=== PATIENT | female | born 1960 | race Caucasian/White ===

== ENCOUNTER 2020-10-13 20:09 | Inpatient (IN) | payer OTHER ==
[~2020-10-13] VITALS: Ht 154.9 cm; Wt 73.5 kg
--- NOTE | 2020-10-13 20:21 | NUR ---
PT BIB SON WITH C/O COUGH +SOB +PAIN ON INHALATION X2 DAYS. PT COVID VACCINATED MODERNA SINCE 06/5020. A/OX4. PUT ON POX AND CONNECTED TO MONITOR
[2020-10-13] MEDS ORDERED: IPRATROPIUM NEB FS 0.5 MG/2.5 ML AMPUL.NEB NEB ONE (20:30)
[2020-10-13] MEDS ORDERED: ALBUTEROL FS 2.5 MG/3 ML VIAL.NEB CONTNEB ONE (20:30)
[2020-10-13] MEDS ORDERED: DEXAMETHASONE SOLN 5 MG/5 ML UDC PO ONE (20:30)
[2020-10-13] MEDS ORDERED: DEXAMETHASONE SOLN 5 MG/5 ML UDC ONE (20:43)
--- NOTE | 2020-10-13 20:50 | NUR ---
FOREIGN EXCHANGE CLERK AT BEDSIDE. BLOODWORK DONE
[2020-10-13 20:51] LABS: BASOPHILS # (AUTO) 0.1 K/uL (0.0-0.2); BASOPHILS % (AUTO) 0.4 % (0.0-2.0); EOSINOPHILS % (AUTO) 5.6 % (0.0-6.0); HEMATOCRIT 46 % (33-45); LYMPHOCYTES # (AUTO) 1.5 K/uL (0.8-4.8); MEAN CORPUSCULAR HGB CONC 33 g/dl (31.0-36.0); MEAN CORPUSCULAR VOLUME 86 fL (82-100); MONOCYTES # (AUTO) 1.1 K/uL (0.1-1.30); MONOCYTES % (AUTO) 7.3 % (2.0-12.0); NEUTROPHILS # (AUTO) 11.4 K/uL (1.8-8.9); NEUTROPHILS % (AUTO) 76.7 % (43.0-81.0); PLATELET COUNT (AUTO) 316 K/uL (150-450); RED BLOOD CELL COUNT(AUTO) 5.32 MIL/uL (4.0-5.2); WHITE BLOOD COUNT (AUTO) 14.8 K/uL (4.3-11.0)
[2020-10-13 20:59] LABS: CALCIUM, SERUM 9.4 mg/dL (8.5-10.1); CARBON DIOXIDE 29 mmol/L (21-32); CHLORIDE 105 mmol/L (98-107); CREATININE 0.6 mg/dL (0.6-1.3); GLUCOSE 113 mg/dL (74-106); POTASSIUM 3.6 mmol/L (3.5-5.1); SODIUM SERUM 144 mmol/L (136-145); UREA NITROGEN, BLOOD 14 mg/dL (7-18)
--- NOTE | 2020-10-13 21:00 | NUR ---
INITIATED IV RAC #20G S/L COVID RAPID, PCR, AND INFLUENZA SWAB COLLECTED AND SENT TO LAB
[2020-10-13] MEDS ORDERED: ALBUTEROL FS 2.5 MG/3 ML VIAL.NEB ONE (21:01)
[2020-10-13] MEDS ORDERED: IPRATROPIUM NEB FS 0.5 MG/2.5 ML AMPUL.NEB ONE (21:01)
--- NOTE | 2020-10-13 21:03 | NUR ---
RT AT BEDSIDE
[2020-10-13 21:12] LABS: ALANINE AMINOTRANSFERASE 32 U/L (12-78); ALBUMIN 4.2 g/dL (3.4-5.0); ALKALINE PHOSPHATASE 124 U/L (46-116); ASPARTATE AMINOTRANSFERASE 25 U/L (15-37); BILIRUBIN,TOTAL 0.5 mg/dL (0.2-1.0); TOTAL PROTEIN, SERUM 7.9 g/dL (6.4-8.2)
[2020-10-13 21:28] LABS: C-REACTIVE PROTEIN 3.4 mg/dL (0.0-0.9); CREATINE KINASE, TOTAL 204 U/L (26-192); FERRITIN 89 ng/mL (8-388)
[2020-10-13 21:30] LABS: ABG BASE EXCESS -0.5 mmol/L; ABG OXYGEN SATURATION 96.1 % (92.0-98.5); ABG PCO2 38.7 mmHg (35.0-45.0); ABG PH 7.409 (7.350-7.450); ABG PO2 85.1 mmHg (75.0-100.0); AaDO2 97.8 mmHg; COHb 0.5 % (0.5-1.5); MetHb 0.4 % (0.0-1.5); O2Hb 95.2 % (94.0-97.0); SITE, ABG Left Radial; VENT MODE, BG NC 3L
[2020-10-13] MEDS ORDERED: LEVOFLOXACIN 750 MG /D5W 150ML 150 ML IV ONE ×2 (21:30→21:33)
--- NOTE | 2020-10-13 21:40 | NUR ---
WEB CONTENT PRODUCER AT BEDSIDE
--- NOTE | 2020-10-13 21:46 | NUR ---
PAGED EPIC FOR DEPARTMENT HEAD PROVIDER FOR DR TO REGARDING PT. AWAITING A CALL BACK.
--- NOTE | 2020-10-13 21:50 | NUR ---
PT O2 3LPM VIA N/C TOLERATING WELL AT 97%. COUGHING NOTED
[2020-10-13] MEDS ORDERED: IV NS 0.9% 250 ML IV ONE (22:00)
[2020-10-13] MEDS ORDERED: IOHEXOL-350 100 ML VIAL IV ONE (22:00)
--- NOTE | 2020-10-13 22:00 | NUR ---
MRSA SWAB COLLECTED AND SENT TO LAB. PATIENT'S BELONGINGS LIST DONE.
[2020-10-13] MEDS ORDERED: ACETAMINOPHEN ES 500 MG TABLET ONE (22:09)
[2020-10-13] MEDS ORDERED: ACETAMINOPHEN ES 500 MG TABLET PO ONE (22:30)
--- NOTE | 2020-10-13 22:34 | NUR ---
PT FOR BED 109
--- NOTE | 2020-10-13 22:40 | NUR ---
ATTEMPTED TO CALL [facility] FOR REPORT; WAS TOLD [facility] RN WILL CALL BACK. AWAITING FOR CALL
--- NOTE | 2020-10-13 23:09 | NUR ---
CALLED [facility] FOR FOLLOW UP ON CT
--- NOTE | 2020-10-13 23:40 | NUR ---
GAVE REPORT TO AMAN COOPER RN
[2020-10-13 23:55] VITALS: BP 169/101
--- NOTE | 2020-10-13 23:55 | NUR ---
ANIMAL HUSBANDRY MANAGER NOTE RECEIVED PATIENT VIA GURNEY. AMBULATED WITH STEADY GAIT. PATIENT STATES SHE DOES EXPERIENCE SOB. ON OXYGEN 3L/MIN VIA NASAL CANNULA. RESPIRATIONS ARE EVEN AND UNLABORED AT REST. WHEEZING HEARD BILATERAL LUNGS. NO C/O PAIN AT THIS TIME. EXTERNAL TELE MONITOR READS SINUS TACH. IN NO APPARENT DISTRESS. IV ACCESS IN RAC#20 PATENT AND SALINE LOCKED. OIL EXPELLER OPERATOR OBTAINED VITALS AND COMPLETED BELONGING LIST. INITIAL PHYSICAL ASSESSMENT COMPLETED AT THIS TIME. SKIN ASSESSMENT COMPLETE, PATIENT DOES NOT HAVE OPEN WOUNDS BUT DOES HAVE PSORIASIS ON HER BACK. BED IS LOW AND LOCKED, HOB ELEVATED IN SEMI FOWLERS, SIDE RAILS UP X2, CALL LIGHT WITHIN REACH, EXPLAINED USE. WILL CONTINUE TO MONITOR THROUGHOUT SHIFT.
--- NOTE | 2020-10-13 23:56 | NUR ---
PT TRANSFERRED TO [facility] VIA ACLS PROTOCOL. ALL PT BELONGINGS WITH PT.
[2020-10-14] MEDS ORDERED: Z GUARD REMEDY 2 OZ OINT TP PRN
[2020-10-14] MEDS ORDERED: hydrALAZINE HCL 10 MG TABLET PO PRN
[2020-10-14] MEDS ORDERED: ALBUTEROL FS 2.5 MG/3 ML VIAL.NEB NEB PRN
[2020-10-14] MEDS ORDERED: MAG HYDROX/AL HYDROX/SIMETH 30 ML UDC PO PRN
[2020-10-14] MEDS ORDERED: MAGNESIUM HYDROXIDE 30 ML UDC PO PRN
[2020-10-14] MEDS ORDERED: IPRATROPIUM NEB FS 0.5 MG/2.5 ML AMPUL.NEB NEB PRN
[2020-10-14] MEDS ORDERED: ONDANSETRON HCL/PF 4 MG/2 ML VIAL IVP PRN
[2020-10-14] MEDS: ENOXAPARIN SODIUM 40 MG/0.4 ML DISP.SYRIN SQ SCH ×2 (01:04→21:53)
[2020-10-14 04:00] VITALS: BP 146/92
[2020-10-14] MEDS: ACETAMINOPHEN 325 MG TABLET PO PRN ×2 (04:35→19:38)
[2020-10-14 06:44] LABS: BASOPHILS % (AUTO) 0.2 % (0.0-2.0); EOSINOPHILS % (AUTO) 0.1 % (0.0-6.0); HEMATOCRIT 44 % (33-45); HEMOGLOBIN 14.8 g/dL (11.5-14.8); LYMPHOCYTES # (AUTO) 0.7 K/uL (0.8-4.8); LYMPHOCYTES % (AUTO) 5.3 % (20.0-44.0); MEAN CORPUSCULAR HGB CONC 33 g/dl (31.0-36.0); MEAN CORPUSCULAR VOLUME 88 fL (82-100); MONOCYTES # (AUTO) 0.1 K/uL (0.1-1.30); MONOCYTES % (AUTO) 0.5 % (2.0-12.0); NEUTROPHILS # (AUTO) 12.4 K/uL (1.8-8.9); NEUTROPHILS % (AUTO) 93.9 % (43.0-81.0); PLATELET COUNT (AUTO) 308 K/uL (150-450); RED BLOOD CELL COUNT(AUTO) 5.05 MIL/uL (4.0-5.2); WHITE BLOOD COUNT (AUTO) 13.2 K/uL (4.3-11.0)
[2020-10-14 07:06] LABS: THYROID STIMULATING HORMONE 0.628 uIU/mL (0.358-3.74)
--- NOTE | 2020-10-14 07:20 | NUR ---
RN NOTE PATIENT RESTING IN BED. ON OXYGEN 3L/MIN VIA NASAL CANNULA. RESPIRATIONS ARE EVEN AND UNLABORED. MANAGED HEADACHE WITH TYLENOL. EXTERNAL TELE MONITOR READS SINUS RHYTHM. NO DISTRESS. IV ACCESS IN RAC#20. BED IS LOW AND LOCKED, HOB ELEVATED IN SEMI FOWLERS, SIDE RAILS UP X2, CALL LIGHT WITHIN REACH, WILL ENDORSE TO ONCOMING SHIFT.
--- NOTE | 2020-10-14 07:42 | NUR ---
FRENCH CORD BINDER OPENING NOTE Pt is Awake, A/O X 4, no respiratory distress, no SOB, denies any pain. On 3 liters via NC, tele reading sinus rhythm, safety precautions implemented, bed locked in lowest position, call light within reach.
[2020-10-14 08:09] LABS: ALBUMIN 4.3 g/dL (3.4-5.0); BILIRUBIN,TOTAL 0.5 mg/dL (0.2-1.0); PHOSPHORUS 3.1 mg/dL (2.5-4.9); TOTAL PROTEIN, SERUM 8.2 g/dL (6.4-8.2)
[2020-10-14] MEDS: LISINOPRIL (5MG) 5 MG TABLET PO SCH (08:32)
[2020-10-14] MEDS: PANTOPRAZOLE 40 MG TABLET.DR PO SCH (08:32)
[2020-10-14] MEDS: DEXAMETHASONE SOD PHOSPHATE 10 MG/ML VIAL IV SCH (08:33)
[2020-10-14 08:45] LABS: CALCIUM, SERUM 9.9 mg/dL (8.5-10.1); CREATININE 0.7 mg/dL (0.6-1.3)
[2020-10-14] MEDS ORDERED: LANS30CA54 PO (09:12)
[2020-10-14] MEDS ORDERED: CETI-90 PO (09:12)
--- NOTE | 2020-10-14 19:12 | NUR ---
RN CLOSING NOTES Pt is A/O X 4, on 3 Liters via NC, reports SOB after exertion walking to bathroom. Continent of B/. RAC IV line patent and intact. Denies any pain or distress. Safety precautions implemented, bed locked in lowest position, call light within reach.
--- NOTE | 2020-10-14 19:42 | NUR ---
rn note received pt alert and oriented x4. on 3L o2 via nc. not in any distress. pt complains of sob when ambulating to restroom. reminded to use call light for assistance. also complains of pain on head and neck when coughing, tylenol given as ordered. all safety measures implemented per protocol. will continue to monitor.
[2020-10-14 20:00] VITALS: BP 151/82
[2020-10-14] MEDS ORDERED: LEVOFLOXACIN 750 MG /D5W 150ML 750 MG in PREMIX 1 EA IV SCH (21:00)
[2020-10-14] MEDS: ATORVASTATIN 10 MG TABLET PO SCH (21:52)
[2020-10-15] MEDS: ZOLPIDEM TARTRATE 5 MG TABLET PO PRN ×2 (02:42→23:49)
--- NOTE | 2020-10-15 02:45 | NUR ---
rn note pt on and off sleep. requested some medication for sleep. ambien given as ordered. will continue to monitor.
[2020-10-15 04:00] VITALS: BP 121/84
--- NOTE | 2020-10-15 06:46 | NUR ---
RN NOTES PT SLEEPING, AROUSES EASILY. NOT IN ANY DISTRESS. DENIES SOB AT THIS TIME. CONTINUE ON O2 AT 3L VIA NC. NO CHANGES IN LOC NOTED, PT ABLE TO MAKE NEEDS KNOWN, PT AMBULATES TO RESTROOM WITH STEADY GAIT. REMAIN AFEBRILE. ALL NEEDS WERE ATTENDED. WILL ENDORSE TO NEXT SHIFT NURSE FOR REBECCA.
[2020-10-15 07:00] LABS: BASOPHILS # (AUTO) 0.1 K/uL (0.0-0.2); BASOPHILS % (AUTO) 0.4 % (0.0-2.0); EOSINOPHILS % (AUTO) 0.1 % (0.0-6.0); HEMATOCRIT 40 % (33-45); HEMOGLOBIN 13.2 g/dL (11.5-14.8); LYMPHOCYTES # (AUTO) 1.4 K/uL (0.8-4.8); LYMPHOCYTES % (AUTO) 8.7 % (20.0-44.0); MEAN CORPUSCULAR HGB CONC 33 g/dl (31.0-36.0); MEAN CORPUSCULAR VOLUME 87 fL (82-100); MONOCYTES # (AUTO) 1.4 K/uL (0.1-1.30); MONOCYTES % (AUTO) 8.4 % (2.0-12.0); NEUTROPHILS # (AUTO) 13.5 K/uL (1.8-8.9); NEUTROPHILS % (AUTO) 82.4 % (43.0-81.0); PLATELET COUNT (AUTO) 298 K/uL (150-450); RED BLOOD CELL COUNT(AUTO) 4.57 MIL/uL (4.0-5.2); WHITE BLOOD COUNT (AUTO) 16.4 K/uL (4.3-11.0)
[2020-10-15 07:19] LABS: CALCIUM, SERUM 9.2 mg/dL (8.5-10.1); CREATININE 0.7 mg/dL (0.6-1.3); PHOSPHORUS 3.6 mg/dL (2.5-4.9); POTASSIUM 3.8 mmol/L (3.5-5.1)
--- NOTE | 2020-10-15 07:45 | NUR ---
MS/RN OPENING NOTES RECEIVED PATIENT ON BED AWAKE ALERT AND ORIENTED X 4. PATIENT IS ON 3L OXYGEN VIA NASAL CANNULA SATURATING WELL. PATIENT IN NO APPARENT RESPIRATORY DISTRESS NOTED. NO COMPLAINED OF PAIN AT THIS TIME. WILL CONTINUE TO MONITOR.
[2020-10-15] MEDS: PANTOPRAZOLE 40 MG TABLET.DR PO SCH (07:57)
[2020-10-15] MEDS: LISINOPRIL (5MG) 5 MG TABLET PO SCH (08:49)
[2020-10-15] MEDS: DEXAMETHASONE SOD PHOSPHATE 10 MG/ML VIAL IV SCH (08:51)
--- NOTE | 2020-10-15 10:46 | NUR ---
PER [facility] PCR NEGATIVE.
[2020-10-15 12:00] VITALS: BP 134/89
[2020-10-15] MEDS: GUAIFENESIN LA 600 MG TABLET.SA PO SCH ×2 (13:12→21:11)
[2020-10-15] MEDS: LEVOFLOXACIN (250MG) 250 MG TABLET PO SCH (13:12)
[2020-10-15] MEDS: IPRATROPIUM NEB FS 0.5 MG/2.5 ML AMPUL.NEB NEB SCH ×4 (13:44→23:39)
[2020-10-15] MEDS: ALBUTEROL HALF STRENGTH 1.25 MG/3 ML VIAL.NEB NEB SCH ×4 (13:44→23:38)
--- NOTE | 2020-10-15 19:09 | NUR ---
MS/RN OPENING NOTES RECEIVED PATIENT ON BED AWAKE ALERT AND ORIENTED X 4. PATIENT IS ON 3L OXYGEN VIA NASAL CANNULA SATURATING WELL. PATIENT IN NO APPARENT RESPIRATORY DISTRESS NOTED. NO COMPLAINED OF PAIN AT THIS TIME. IV ACCESS AT RIGHT AC #20G PATENT AND INTACT. SEEN AND EXAMINED BY MD WITH ORDERS MADE AND CARRIED OUT. ALL DUE MEDICATIONS WAS GIVEN. SAFETY PRECAUTIONS WAS IN PLACED. BED IN LOWEST POSITION AND LOCKED. SIDERAILS UP X2. CALL LIGHT WITHIN REACH. WILL ENDORSED TO POLICE GUARD FOR REBECCA. Addendum: 10/15/20 at 1910 by KATTY CARRENO RN ERROR
--- NOTE | 2020-10-15 19:10 | NUR ---
MS/RN CLOSING NOTES PATIENT ON BED AWAKE ALERT AND ORIENTED X 4. PATIENT IS ON 3L OXYGEN VIA NASAL CANNULA SATURATING WELL. PATIENT IN NO APPARENT RESPIRATORY DISTRESS NOTED. NO COMPLAINED OF PAIN AT THIS TIME. IV ACCESS AT RIGHT AC #20G PATENT AND INTACT. SEEN AND EXAMINED BY MD WITH ORDERS MADE AND CARRIED OUT. ALL DUE MEDICATIONS WAS GIVEN. SAFETY PRECAUTIONS WAS IN PLACED. BED IN LOWEST POSITION AND LOCKED. SIDERAILS UP X2. CALL LIGHT WITHIN REACH. WILL ENDORSED TO MANAGER HELPDESK FOR REBECCA.
--- NOTE | 2020-10-15 19:53 | NUR ---
RN NOTE PATIENT ALERT AND ORIENTED X4, ABLE TO MAKE NEEDS KNOWN. ON O2 3L NASAL CANNULA, NO SIGNS OF RESPIRATORY DISTRESS. RIGHT AC # 20 PATENT AND INTACT, FLUSHED ASEPTICALLY WITH NS. BED LOCKED AND IN LOWEST POSITION. CALL LIGHT WITHIN REACH. ALL NEEDS ANTICIPATED.
[2020-10-15 20:00] VITALS: BP 129/76
[2020-10-15] MEDS: ATORVASTATIN 10 MG TABLET PO SCH (21:11)
[2020-10-15] MEDS: ENOXAPARIN SODIUM 40 MG/0.4 ML DISP.SYRIN SQ SCH (21:12)
[2020-10-15] MEDS: ACETAMINOPHEN 325 MG TABLET PO PRN (23:48)
[2020-10-16 04:00] VITALS: BP 126/81
[2020-10-16] MEDS: ALBUTEROL HALF STRENGTH 1.25 MG/3 ML VIAL.NEB NEB SCH ×6 (04:30→23:34)
[2020-10-16] MEDS: IPRATROPIUM NEB FS 0.5 MG/2.5 ML AMPUL.NEB NEB SCH ×6 (04:30→23:34)
[2020-10-16 06:27] LABS: BASOPHILS % (AUTO) 0.2 % (0.0-2.0); EOSINOPHILS % (AUTO) 0.3 % (0.0-6.0); HEMATOCRIT 40 % (33-45); HEMOGLOBIN 13.2 g/dL (11.5-14.8); LYMPHOCYTES # (AUTO) 2.3 K/uL (0.8-4.8); LYMPHOCYTES % (AUTO) 18.4 % (20.0-44.0); MEAN CORPUSCULAR HGB CONC 33 g/dl (31.0-36.0); MEAN CORPUSCULAR VOLUME 87 fL (82-100); MONOCYTES # (AUTO) 0.9 K/uL (0.1-1.30); NEUTROPHILS # (AUTO) 9.2 K/uL (1.8-8.9); NEUTROPHILS % (AUTO) 74.1 % (43.0-81.0); PLATELET COUNT (AUTO) 299 K/uL (150-450); WHITE BLOOD COUNT (AUTO) 12.3 K/uL (4.3-11.0)
--- NOTE | 2020-10-16 07:15 | NUR ---
RN NOTE PATIENT ALERT AND ORIENTED X4. CONTINUES ON O2 3L VIA NASAL CANNULA, RESPIRATIONS EVEN AND UNLABORED. NO SIGNS OF ACUTE RESPIRATORY DISTRESS. ALL NEEDS ATTENDED PROMPTLY. BED LOCKED AND IN LOWEST POSITION. CALL LIGHT WITHIN REACH. ENDORSED TO AM SHIFT.
--- NOTE | 2020-10-16 07:30 | NUR ---
RN N0TES Recieved patient in bed, sleeping, HOB elevated. Breathing even and unlabored. Patient currently on oxygen 3L/min nasal Cannula. No shortness of breath noted. Patient alert and oriented x4. Able to make needs known. Oxygen saturation within normal limits. Will continue to monitor.
[2020-10-16 07:42] LABS: CALCIUM, SERUM 9.4 mg/dL (8.5-10.1); POTASSIUM 3.4 mmol/L (3.5-5.1)
[2020-10-16 07:43] LABS: CREATININE 0.7 mg/dL (0.6-1.3); MAGNESIUM 2.3 mg/dL (1.8-2.4)
[2020-10-16 08:00] VITALS: BP 133/81
[2020-10-16] MEDS: PANTOPRAZOLE 40 MG TABLET.DR PO SCH (08:38)
[2020-10-16] MEDS: GUAIFENESIN LA 600 MG TABLET.SA PO SCH ×2 (08:39→21:43)
[2020-10-16] MEDS: LISINOPRIL (5MG) 5 MG TABLET PO SCH (08:41)
[2020-10-16] MEDS ORDERED: DEXAMETHASONE 4 MG TABLET PO SCH (09:00)
[2020-10-16] MEDS ORDERED: POTASSIUM CHLORIDE 20 MEQ TAB.PRT.SR PO ONE (10:00)
[2020-10-16] MEDS: methylPREDNISolone SOD SUCC 125 MG/2ML VIAL IV SCH ×2 (11:07→16:39)
[2020-10-16] MEDS: LEVOFLOXACIN (250MG) 250 MG TABLET PO SCH (12:30)
--- NOTE | 2020-10-16 15:59 | NUR ---
RN NOTES Received a call from Seasonal Sales AssociateNellie, ext [phone]. and asking the status of the patients oxygen saturation during rest and during ambulation. Patient's oxygen saturation during rest was ranging between 95-94 percent on NC 2/min. During rest and without oxygen, oxygen saturation was ranging from 95-94%. Patient refused to ambulate and have the oxygen saturation measured again. 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 Patient with episodes of coughing when taking deep breathes. Informed Nellie case mgr.
[2020-10-16 16:00] VITALS: BP 141/86
[2020-10-16 17:06] VITALS: BP 133/81
--- NOTE | 2020-10-16 18:29 | NUR ---
RN NOTES NO SIGNIFICANT CHANGES DURING SHIFT. CURRENTLY ON 3L OXYGEN VIA NASAL CANNULA. SKIN IS WARM AND DRY TO TOUCH. AFEBRILE. PATIENT ABLE TO AMBULATE TO THE RESTROOM BY HERSELF. PATIENT COMPLAINTS OF SOB WITH AMBULATION TO THE BATHROOM. NO COMPLAINTS OF DISCOMFORT DURING SHIFT. WILL ENDORSE TO NEXT SHIFT FOR CONTINUATION OF CARE.
--- NOTE | 2020-10-16 19:30 | NUR ---
RN NOTES Received patient in bed AOx4, continues on oxygen 3L via NC. Breathing normal no SOB noted. respiration even non labored. RAC IV intact no s/s of infiltration noted. Skin warm and dry to touch. Denies any pain or discomfort. All safety measures in place, call light within reach. Will cont to monitor for norma.
[2020-10-16 20:00] VITALS: BP 127/73
[2020-10-16] MEDS: ATORVASTATIN 10 MG TABLET PO SCH (21:45)
[2020-10-16] MEDS: ENOXAPARIN SODIUM 40 MG/0.4 ML DISP.SYRIN SQ SCH (21:46)
[2020-10-17] MEDS: ACETAMINOPHEN 325 MG TABLET PO PRN (03:17)
[2020-10-17] MEDS: IPRATROPIUM NEB FS 0.5 MG/2.5 ML AMPUL.NEB NEB SCH ×3 (03:29→11:34)
[2020-10-17] MEDS: ALBUTEROL HALF STRENGTH 1.25 MG/3 ML VIAL.NEB NEB SCH ×3 (03:29→11:34)
[2020-10-17 04:00] VITALS: BP 140/83
--- NOTE | 2020-10-17 06:48 | NUR ---
RN NOTES No changes noted during shift. vital signs remained wnl. Breathing normal continues with 5L NC. Skin warm and dry to touch. Patient is able to ambulate to the bathroom but noted with SOB and low saturation to 82%.Encourage pt to call for assistance when need to go to the bathroom, pt verbalized understanding. No complains during shift. All Safety measures in place, call light within reach. Will endorse to am nurse for norma. Addendum: 10/17/20 at 0651 by CLAUDIA PARRISH RN ERROR in charting different pt.
--- NOTE | 2020-10-17 06:51 | NUR ---
RN notes No changes noted during shift. Vital signs remained WNL. During shift pt received routine medications along with PRN Tylenol for headache / noted to be effective. on room air saturating 94-93%. IV's intact. Skin warm and dry to touch. No complains during shift. All safety measures in place, call light within reach. Will endorse to am nurse for norma.
[2020-10-17] MEDS: GUAIFENESIN LA 600 MG TABLET.SA PO SCH (08:06)
[2020-10-17] MEDS: methylPREDNISolone SOD SUCC 125 MG/2ML VIAL IV SCH (08:06)
[2020-10-17] MEDS: PANTOPRAZOLE 40 MG TABLET.DR PO SCH (08:06)
[2020-10-17 08:07] VITALS: BP 140/68
[2020-10-17] MEDS: LISINOPRIL (5MG) 5 MG TABLET PO SCH (08:07)
--- NOTE | 2020-10-17 09:27 | NUR ---
MS RN NOTE REPORTED TO DR OLSON BEEKEEPER THAT PATIENT HAS WHEEZING UPON AUSCULTATION
[2020-10-17] MEDS ORDERED: ATOR10TA PO ×2 (11:16→12:18)
[2020-10-17] MEDS ORDERED: PRED20TA PO ×4 (11:16→12:18)
[2020-10-17] MEDS ORDERED: METH4TAB17 PO ×2 (11:16→12:18)
[2020-10-17] MEDS ORDERED: LISI-768 PO ×2 (11:16→12:18)
[2020-10-17] MEDS ORDERED: ALBU6.7H9 INH ×2 (11:16→12:18)
[2020-10-17] MEDS ORDERED: FLUT1BLS IH ×2 (11:16→12:18)
[2020-10-17] MEDS ORDERED: GUAI600T53 PO ×2 (11:16→12:18)
--- NOTE | 2020-10-17 12:00 | NUR ---
t ms rn ote seen by dr Leslie cornelius to discharge home
[2020-10-17] MEDS: LEVOFLOXACIN (250MG) 250 MG TABLET PO SCH (12:47)
--- NOTE | 2020-10-17 12:56 | NUR ---
MS RN NOTE DISCHARGE INSTRUCTION GIVEN TO PATIENT,HL ON RT AC REMOVED . NO BLEEDING NOTED , PX GIVEN AND CALLED TO PHARMACY TO VERIFY ID THE PREPARE TO HAVE MEDICATION FOR PATIENT ,,WILL BE READY IN 1 HOUR , ALSO BELONGING SIGNED, INSTRUCTED TO F\U WITH DR OLSON AND CT SCAN ORDERED , F U WITH PRIMARY CARE DOCTOR , ENPLANED HOW TO TAKE HOME MEDS AND NEW PX AND POSSIBLE SIDE EFFECTS ,
--- NOTE | 2020-10-17 13:30 | NUR ---
ms rn note taken patient to lobby on w\c with stable condition
== END 2020-10-17 13:15 | disposition home or self-care (01) | DRG 189 ==
LOC: ER 20:13 → TELE1 22:37 → MEDSG1 10-14 07:51
PROVIDERS: ADMIT Hospitalist; ATTEND Nurse Practitioner Acute Care
DX: J96.01 Acute respiratory failure with hypoxia (principal); R65.10 Systemic inflammatory response syndrome (SIRS) of non-infectious origin without acute organ dysfunction; I10 Essential (primary) hypertension; D72.829 Elevated white blood cell count, unspecified; K44.9 Diaphragmatic hernia without obstruction or gangrene; J40 Bronchitis, not specified as acute or chronic; E66.9 Obesity, unspecified; E78.5 Hyperlipidemia, unspecified; Z20.822 Contact with and (suspected) exposure to COVID-19; R91.1 Solitary pulmonary nodule; Z68.30 Body mass index [BMI] 30.0-30.9, adult
CPT/HCPCS: 36415; 36600; 70220-TC; 71045-TC; 80048-TC; 80053-TC; 80061-TC; 82550-TC; 82728-TC; 83615-TC; 83735-TC; 83880; 84100-TC; 84443-TC; 84484-TC; 85025-TC; 85378-TC; 86140-TC; 87040-TC; 87081-TC; 94799-TC; A4216; C9803; G0378; J1100; J1650; J1956; J2930; J7050; J8540; Q9967; U0003